=== PATIENT | female | born 1965 | race Caucasian/White ===

== ENCOUNTER 2017-02-26 17:04 | Emergency (ER) | payer OTHER ==
[~2017-02-26] VITALS: Ht 165.1 cm; Wt 63.6 kg
[2017-02-26] MEDS ORDERED: SPIR50 PO (17:19)
[2017-02-26] MEDS ORDERED: MIRT15 PO (17:19)
[2017-02-26] MEDS ORDERED: MULT1CAP32 PO (17:19)
[2017-02-26] MEDS ORDERED: FURO20TA4 PO (17:19)
[2017-02-26] MEDS ORDERED: GABA-529 PO (17:19)
[2017-02-26] MEDS ORDERED: LANS30 PO (17:19)
[2017-02-26] MEDS ORDERED: ChlordiazePOXIDE HCL 25 MG CAPSULE PO ONE (20:30)
[2017-02-26 21:18] VITALS: BP 108/66
== END 2017-02-26 21:58 | disposition home or self-care (01) ==
LOC: EMS 17:06
DX: F10.239 Alcohol dependence with withdrawal, unspecified (principal); Z76.0 Encounter for issue of repeat prescription; Y90.9 Presence of alcohol in blood, level not specified
CPT/HCPCS: 99283

== ENCOUNTER 2023-03-27 16:03 | Emergency (ER) | payer OTHER ==
[~2023-03-27] VITALS: Ht 160 cm; Wt 56.8 kg
[~2023-03-27 16:03] MED LIST: FURO20TA4 PO; GABA-1216 PO; LANS30CA56 PO; MIRT-89 PO; MULT1CAP32 PO; SPIR50TA27 PO
[2023-03-27] MEDS ORDERED: ALBU18HF12 IH (16:15)
[2023-03-27] MEDS ORDERED: ARIP30TA PO (16:15)
[2023-03-27] MEDS ORDERED: SPIR100T5 PO (16:15)
[2023-03-27] MEDS ORDERED: OMEP40CA21 PO (16:15)
[2023-03-27] MEDS ORDERED: LEVO25TA9 PO (16:15)
[2023-03-27] MEDS ORDERED: FURO80TA3 PO (16:15)
[2023-03-27] MEDS ORDERED: BACTDSB PO (16:15)
[2023-03-27] MEDS ORDERED: GABA-1181 PO (16:15)
[2023-03-27] MEDS ORDERED: VENL-67 PO (16:15)
[2023-03-27] MEDS ORDERED: RIFAX550 PO (16:15)
[2023-03-27] MEDS ORDERED: OLAN7.5T18 PO (16:15)
[2023-03-27] MEDS ORDERED: CEPH500C2 PO (16:15)
[2023-03-27] MEDS ORDERED: PROP10TA72 PO (16:15)
[2023-03-27] MEDS ORDERED: FOLI-130 PO (16:15)
[2023-03-27] MEDS ORDERED: LACT10SO75 PO (16:15)
[2023-03-27] MEDS ORDERED: QUET25TA36 PO (16:15)
[2023-03-27] MEDS ORDERED: MIDO10TA PO (16:15)
[2023-03-27] MEDS ORDERED: 0.9% SODIUM CHLORIDE 10 ML SYRINGE IVP PRN (16:45)
[2023-03-27] MEDS ORDERED: SODIUM CHLORIDE 0.9% 1,700 ML IV ONE (16:45)
[2023-03-27 17:32] LABS: COVID AG,FIA SOURCE NASOPHARYNGEAL
[2023-03-27 17:35] LABS: BASOPHILS % (AUTO) 0.1 % (0.0-2.0); HEMATOCRIT 31.9 % (36-46); HEMOGLOBIN 10.4 g/dL (12.0-16.0); LYMPHOCYTES % (AUTO) 7.2 % (22.0-44.0); MEAN CORPUSCULAR HEMOGLOBIN 29.4 pg (26.0-34.0); MEAN CORPUSCULAR HGB CONC 32.4 G/dL (31.0-37.0); MEAN CORPUSCULAR VOLUME 91 fL (80-100); MONOCYTES # (AUTO) 1.5 K/uL (0.1-1.0); MONOCYTES % (AUTO) 11.2 % (2.0-9.0); NEUTROPHILS # (AUTO) 10.7 K/uL (1.8-7.7); NEUTROPHILS % (AUTO) 80.5 % (40.0-70.0); RED BLOOD CELL COUNT(AUTO) 3.52 MIL/uL (4.00-5.20); RED CELL DISTRIBUTION WIDTH 19.9 % (11.5-14.5)
[2023-03-27 17:41] LABS: ANION GAP 15 mmol/L (8-16); CALCIUM, TOTAL 9.7 mg/dL (8.8-10.5); CARBON DIOXIDE 24 mmol/L (22-29); CHLORIDE 102 mmol/L (98-107); CREATININE 0.88 mg/dL (0.60-1.30); GLOMERULAR FILTR. RATE CALC > 60 mL/min (>60); GLUCOSE,RANDOM 127 mg/dL (70-110); POTASSIUM 3.3 mmol/L (3.5-5.1); SODIUM SERUM 141 mmol/L (136-145)
[2023-03-27 17:46] LABS: AMMONIA 29 umol/L (11-32)
[2023-03-27 17:54] LABS: LACTIC ACID 2.3 mmol/L (0.4-2.0)
[2023-03-27 17:56] LABS: ALANINE AMINOTRANSFERASE 39 U/L (12-78); ALBUMIN 3.8 g/dL (3.4-5.0); ALKALINE PHOSPHATASE 235 U/L (46-116); ASPARTATE AMINOTRANSFERASE 61 U/L (15-37); BILIRUBIN,TOTAL 5.1 mg/dL (0.1-1.0); PLATELET COUNT (AUTO) 77 K/uL (150-450); THYROID STIMULATING HORMONE 1.67 uIU/mL (0.36-3.74); TOTAL PROTEIN, SERUM 7.6 g/dL (6.4-8.2)
[2023-03-27 19:13] LABS: APPEARANCE,URINE HAZY (CLEAR); BILIRUBIN,URINE NEGATIVE (NEGATIVE); GLUCOSE, URINE (UA) NEGATIVE (NEGATIVE); KETONES,URINE NEGATIVE (NEGATIVE); LEUKOCYTE ESTERASE ,URINE LARGE (NEGATIVE); NITRATE,URINE NEGATIVE (NEGATIVE); OCCULT BLOOD,URINE NEGATIVE (NEGATIVE); PROTEIN,URINE NEGATIVE (NEGATIVE); UROBILINOGEN,URINE <=1.0 mg/dL (<=1.0)
[2023-03-27 19:21] LABS: AMPHET/METH SCREEN,URINE NEGATIVE (NEGATIVE); BARBITURATE SCREEN, URINE NEGATIVE (NEGATIVE); BENZODIAZEPINES SCREEN,URINE NEGATIVE (NEGATIVE); CANNABINOID SCREEN,URINE POSITIVE (NEGATIVE); COCAINE SCREEN,URINE NEGATIVE (NEGATIVE); METHADONE SCREEN, URINE NEGATIVE (NEGATIVE); OPIATE SCREEN,URINE NEGATIVE (NEGATIVE); PHENCYCLIDINE SCREEN,URINE NEGATIVE (NEGATIVE)
[2023-03-27 19:35] LABS: RBC,URINE None Seen /HPF (0-2); SQUAMOUS EPITHELIAL CELL,UR Many /LPF (None Seen)
[2023-03-27 19:36] LABS: BACTERIA,URINE Few /HPF (None Seen)
[2023-03-27 20:08] VITALS: BP 147/91
== END 2023-03-27 21:30 | disposition left against medical advice (07) ==
LOC: EMS 16:03
DX: F41.9 Anxiety disorder, unspecified (principal); K74.60 Unspecified cirrhosis of liver; R00.0 Tachycardia, unspecified; G89.29 Other chronic pain; F31.9 Bipolar disorder, unspecified; J44.9 Chronic obstructive pulmonary disease, unspecified; K21.9 Gastro-esophageal reflux disease without esophagitis; I10 Essential (primary) hypertension; F20.9 Schizophrenia, unspecified; Z20.822 Contact with and (suspected) exposure to COVID-19
CPT/HCPCS: 99285; 71045; 87426; 80053; 82140; 83605; 84443; 84484; 85025; 87040; 36415; 87086; 87186; 93005; 80307; 84145; 81001; G0480